=== PATIENT | female | born 1940 | race Caucasian/White ===

== ENCOUNTER 2017-11-06 17:11 | Inpatient (IN) | payer MEDICARE, BC ==
[~2017-11-06] VITALS: Ht 157.5 cm; Wt 55.3 kg
--- NOTE | ~2017-11-06 | HP ---
PATIENT: ANMOL ASHLEY MEDICAL RECORD: [id number] ACCOUNT: [id number] LOCATION:[facility] : 39 ADMISSION DATE: 11/07/17 HISTORY AND PHYSICAL EXAMINATION HISTORY: She is a 76-year-old female who presented to the office today with one-day history of abdominal pain. She has also had nausea, vomiting, unable to keep any fluids down for the last 24 hours. She states has had some diarrhea. She has also had fever and chills, has felt lightheaded and states a couple of times today she felt like she was going to pass out. She was seen in the office, found to have hypoactive bowel sounds with likely at least partial ileus. She also had dehydration based on 2+ ketone in the urine. She is going to be admitted for IV fluids and further evaluation and treatment. PAST MEDICAL HISTORY: She has past medical history that is significant for GERD. She has history of some vitamin D deficiency, osteoporosis. She also has a history of breast cancer. She had a lumpectomy back in [address] Doran. She has had benign tumor on her bladder back in 2005, partial hysterectomy in 1974, removal of her gallbladder in the 60s. SOCIAL HISTORY: She does not smoke. No alcohol or drug use. She is . FAMILY HISTORY: Significant for coronary disease in her father and diabetes in son. HOME MEDICATIONS: Include aspirin as needed, pantoprazole 40 mg daily, tramadol p.r.n., and vitamin D 5000 units daily. She had been on Reclast in the past, but has not been on now for several years due to perceived side effects. She also takes some intermittent [id number]-[id number] iron. REVIEW OF SYSTEMS: HEENT: She denies any visual or auditory changes. No sore throat or dysphagia. CARDIOPULMONARY: She denies any chest pain or palpitations. She did have a cough a couple of days ago. She states she has not really had a cough in the last couple of days. Denies shortness of breath. No hemoptysis. GASTROINTESTINAL: She has had the abdominal pain primarily across her entire midabdomen. She has been throwing up and unable to keep any fluids or food down. She did have several episodes of diarrhea this morning. Denies any melena or hematochezia. GENITOURINARY: She denies any hematuria or dysuria. MUSCULOSKELETAL: Feels sore and achy all over, but no joint swelling or erythema. NEUROLOGIC: She has felt near syncopal, but has not had any loss of consciousness. She has a slight headache, but denies any history of TIAs or CVA. PHYSICAL EXAMINATION: VITAL SIGNS: Blood pressure was 124/60, her pulse was 92, respirations of 16, she had temperature of 99.5 orally. HEENT: PERRLA. EOMI. Dry oral mucosa noted. No erythema in the posterior pharynx. NECK: Supple. No JVD or adenopathy. HEART: S1 and S2 with no murmur or rub. LUNGS: Clear with no rhonchi, rales, or wheezing. ABDOMEN: Soft. There was diffuse tenderness to palpation in the upper HISTORY AND PHYSICAL [id number] ASHLEY,ANMOL J quadrants and lower quadrants. Hypoactive bowel sounds throughout. No rebound or guarding. EXTREMITIES: No edema, clubbing, or cyanosis. LABORATORY DATA: Her CBC was unremarkable. Urine had 2+ blood. ASSESSMENT AND PLAN: Abdominal pain with ileus and dehydration. Incidentally, the patient did state that, for several months, she has been having some rectal pain with bowel movements that has been getting progressively worse. Due to that as well as her current abdominal pain and nausea, we are going to ask GI to see her. She had seen Dr. Lewis in the past, had a colonoscopy about 5 years ago. May require further imaging as an outpatient. We are going to culture her stools, order a CT tonight of the abdomen and pelvis, rehydrate with IV fluids, antiemetics p.r.n. We will culture blood and urine. Hold off on any antibiotics at this time, but continue to follow clinically. TRANSINT:[id number] Voice Confirmation ID: [id number] DOCUMENT ID: [id number] CHIDI RODRIGUES DO at 0554 CC: [id number] DICTATION DATE: 11/06/171723 TERRAZZO TILE SETTER: 11/06/17 1810 ADM IN [facility] [address] [place] [address]
[2017-11-06 17:36] VITALS: BP 122/45
[2017-11-06 18:10] LABS: BASOPHILS 0.1 % (0-2); EOSINOPHILS 0 % (0-7); HEMATOCRIT 40.2 % (36.0-48.0); HEMOGLOBIN 13.2 g/dL (12-16); IMMATURE GRANULOCYTES 0.1 % (0-5); LYMPHOCYTES 2.1 % (15-50); MCH 31.3 pg (26.0-34.0); MCHC 32.8 g/dL (31.0-37.0); MCV 95.3 fL (80.0-100.0); MEAN PLATELET VOLUME 9.8 fL (7.4-10.4); MONOCYTES 2.7 % (2-11); PLATELET COUNT 199 10x3/uL (130-400); RBC 4.22 10x6/uL (4.00-5.40)
[2017-11-06 18:33] LABS: ALBUMIN 3.6 g/dL (3.4-5.0); ANION GAP 12.7 mmol/L (8-16); BILIRUBIN - TOTAL 0.39 mg/dL (0.2-1.3); CREATININE - SERUM 0.8 mg/dL (0.6-1.3); POTASSIUM - SERUM 3.7 mmol/L (3.5-5.1); PROTEIN - SERUM 7.5 g/dL (6.4-8.2)
[2017-11-06 19:11] VITALS: BMI 22.3
[2017-11-06 22:13] VITALS: BP 93/48
[2017-11-07 01:16] VITALS: BP 114/43
[2017-11-07 05:14] VITALS: BP 130/46
[2017-11-07 06:27] LABS: BASOPHILS 0.2 % (0-2); EOSINOPHILS 0 % (0-7); HEMATOCRIT 33.3 % (36.0-48.0); HEMOGLOBIN 10.8 g/dL (12-16); IMMATURE GRANULOCYTES 0.5 % (0-5); LYMPHOCYTES 8.8 % (15-50); MCH 30.7 pg (26.0-34.0); MCHC 32.4 g/dL (31.0-37.0); MCV 94.6 fL (80.0-100.0); MEAN PLATELET VOLUME 9.4 fL (7.4-10.4); MONOCYTES 6.4 % (2-11); NEUTROPHILS 84.1 % (40-80); PLATELET COUNT 178 10x3/uL (130-400); RBC 3.52 10x6/uL (4.00-5.40); RDW 13.1 % (11.5-14.5)
[2017-11-07 06:29] LABS: WBC 4.2 10x3/uL (4.8-10.8)
[2017-11-07 06:56] LABS: ALBUMIN 2.7 g/dL (3.4-5.0); BILIRUBIN - TOTAL 0.21 mg/dL (0.2-1.3); CALCIUM 8.1 mg/dL (8.5-10.1); CARBON DIOXIDE 24.2 mmol/L (21.0-32.0); CREATININE - SERUM 0.8 mg/dL (0.6-1.3); POTASSIUM - SERUM 4.2 mmol/L (3.5-5.1); PROTEIN - SERUM 5.7 g/dL (6.4-8.2)
[2017-11-07 06:59] LABS: APPEARANCE HAZY (CLEAR); BACTERIA MODERATE /hpf (NONE SEEN); BILIRUBIN NEGATIVE (NEGATIVE); COLOR DK YELLOW (YELLOW); EPITHELIAL CELLS 0-5 /hpf (0-5); GLUCOSE NEGATIVE (NEGATIVE); KETONE MODERATE mg/dL (NEGATIVE); MUCUS >1+ /lpf (NONE SEEN); NITRITE NEGATIVE (NEGATIVE); PROTEIN NEGATIVE (NEGATIVE); RED CELLS - URINE RARE /hpf (0-5); SPECIFIC GRAVITY 1.025 (1.005-1.020); UROBILINOGEN NORMAL (NORMAL)
[2017-11-07 08:12] VITALS: BP 118/38
[2017-11-07] MEDS ORDERED: ULTRAM50 MG PO (08:48)
[2017-11-07] MEDS ORDERED: ATIVAN0.5 MG PO (08:49)
[2017-11-07] MEDS ORDERED: PROTONIX40 MG PO (08:49)
[2017-11-07 12:30] VITALS: BP 118/40
[2017-11-07 13:10] VITALS: Ht 157.5 cm; Wt 55.3 kg
[2017-11-07 15:58] VITALS: BP 126/43
[2017-11-07 21:07] VITALS: BP 128/45
[2017-11-08 01:58] VITALS: BP 145/48
[2017-11-08 04:06] LABS: BASOPHILS 0.3 % (0-2); EOSINOPHILS 0 % (0-7); HEMATOCRIT 29.7 % (36.0-48.0); HEMOGLOBIN 9.7 g/dL (12-16); IMMATURE GRANULOCYTES 0.3 % (0-5); LYMPHOCYTES 15.4 % (15-50); MCH 31.2 pg (26.0-34.0); MCHC 32.7 g/dL (31.0-37.0); MCV 95.5 fL (80.0-100.0); MEAN PLATELET VOLUME 9.6 fL (7.4-10.4); MONOCYTES 13.9 % (2-11); NEUTROPHILS 70.1 % (40-80); PLATELET COUNT 158 10x3/uL (130-400); RBC 3.11 10x6/uL (4.00-5.40); RDW 13.1 % (11.5-14.5); WBC 3.5 10x3/uL (4.8-10.8)
[2017-11-08 04:19] LABS: CALC OSMOLALITY 276 mosm/kg (275-300); CARBON DIOXIDE 19.6 mmol/L (21.0-32.0); CHLORIDE - SERUM 111 mmol/L (98-107); CREATININE - SERUM 0.7 mg/dL (0.6-1.3); GLUCOSE 81 mg/dL (74-106); POTASSIUM - SERUM 3.8 mmol/L (3.5-5.1); SODIUM 139 mmol/L (136-145); eGFR NON AFRICAN AMERICAN 86 mL/min (90-120)
[2017-11-08 04:20] LABS: UREA NITROGEN 13 mg/dL (7-18)
[2017-11-08 05:24] VITALS: BP 126/45
[2017-11-08 08:53] VITALS: BP 125/57
[2017-11-08 11:34] VITALS: BP 143/56
[2017-11-08 16:23] VITALS: BP 142/51
[2017-11-08 21:12] VITALS: BP 143/44
[2017-11-09 00:59] VITALS: BP 129/49
[2017-11-09 04:59] LABS: BASOPHILS 0.2 % (0-2); EOSINOPHILS 0.5 % (0-7); HEMATOCRIT 30.1 % (36.0-48.0); HEMOGLOBIN 9.7 g/dL (12-16); IMMATURE GRANULOCYTES 0.2 % (0-5); LYMPHOCYTES 16.7 % (15-50); MCH 30.2 pg (26.0-34.0); MCHC 32.2 g/dL (31.0-37.0); MCV 93.8 fL (80.0-100.0); MEAN PLATELET VOLUME 9.2 fL (7.4-10.4); MONOCYTES 13.4 % (2-11); PLATELET COUNT 154 10x3/uL (130-400); RBC 3.21 10x6/uL (4.00-5.40); RDW 13.1 % (11.5-14.5); WBC 4.3 10x3/uL (4.8-10.8)
[2017-11-09 05:05] VITALS: BP 99/63
[2017-11-09 05:39] LABS: CALC OSMOLALITY 281 mosm/kg (275-300); CALCIUM 7.2 mg/dL (8.5-10.1); CARBON DIOXIDE 18.9 mmol/L (21.0-32.0); CHLORIDE - SERUM 114 mmol/L (98-107); CREATININE - SERUM 0.7 mg/dL (0.6-1.3); GLUCOSE 83 mg/dL (74-106); POTASSIUM - SERUM 3.8 mmol/L (3.5-5.1); SODIUM 143 mmol/L (136-145); eGFR NON AFRICAN AMERICAN 86 mL/min (90-120)
[2017-11-09 05:44] LABS: UREA NITROGEN 8 mg/dL (7-18)
[2017-11-09 08:24] VITALS: BP 148/69
[2017-11-09 12:10] VITALS: BP 156/63
[2017-11-09 16:39] VITALS: BP 168/49
[2017-11-09 22:35] VITALS: BP 172/68
[2017-11-10 01:02] VITALS: BP 171/54
[2017-11-10 05:10] LABS: BASOPHILS 0.2 % (0-2); EOSINOPHILS 0.7 % (0-7); HEMATOCRIT 29.8 % (36.0-48.0); HEMOGLOBIN 10.1 g/dL (12-16); IMMATURE GRANULOCYTES 0.4 % (0-5); MCH 31.7 pg (26.0-34.0); MCHC 33.9 g/dL (31.0-37.0); MCV 93.4 fL (80.0-100.0); MEAN PLATELET VOLUME 10.1 fL (7.4-10.4); NEUTROPHILS 71.7 % (40-80); RBC 3.19 10x6/uL (4.00-5.40); RDW 13.1 % (11.5-14.5)
[2017-11-10 05:12] LABS: PLATELET COUNT 197 10x3/uL (130-400); WBC 5.5 10x3/uL (4.8-10.8)
[2017-11-10 05:30] LABS: ALBUMIN 2.5 g/dL (3.4-5.0); ALKALINE PHOSPHATASE 67 U/L (46-116); ALT (SGPT) 25 U/L (10-68); BILIRUBIN - TOTAL 0.19 mg/dL (0.2-1.3); CALC OSMOLALITY 276 mosm/kg (275-300); CALCIUM 7.8 mg/dL (8.5-10.1); CARBON DIOXIDE 21.6 mmol/L (21.0-32.0); CHLORIDE - SERUM 110 mmol/L (98-107); CREATININE - SERUM 0.7 mg/dL (0.6-1.3); GLUCOSE 97 mg/dL (74-106); POTASSIUM - SERUM 3.5 mmol/L (3.5-5.1); PROTEIN - SERUM 5.5 g/dL (6.4-8.2); SODIUM 140 mmol/L (136-145); UREA NITROGEN 6 mg/dL (7-18); eGFR NON AFRICAN AMERICAN 86 mL/min (90-120)
[2017-11-10] MEDS ORDERED: ANUSOL-HC 2.5%30 GM TOPICAL (06:02)
[2017-11-10] MEDS ORDERED: ZOFRAN4 MG PO (06:02)
[2017-11-10 06:09] VITALS: BP 168/78
[2017-11-10 08:26] VITALS: BP 188/77
[2017-11-12 03:14] LABS: OVA + PARASITE EXAM Final report (())
== END 2017-11-10 12:49 | disposition home or self-care (01) | DRG 392 ==
LOC: D.MS 17:11 → OBSVTIME 17:11 → D.MS 17:11
PROVIDERS: Family Medicine; Internal Medicine Gastroenterology
DX: K52.9 Noninfective gastroenteritis and colitis, unspecified (principal); K21.9 Gastro-esophageal reflux disease without esophagitis; E86.0 Dehydration; D64.9 Anemia, unspecified; R06.02 Shortness of breath